=== PATIENT | female | born 1965 | race Caucasian/White ===

== ENCOUNTER 2023-10-18 18:58 | Inpatient (IN) | payer OTHER ==
[2023-10-18] MEDS ORDERED: SODIUM CHLORIDE 0.9% 500 ML 500 ML IV STA (19:30)
--- NOTE | 2023-10-18 19:53 | ED ---
Headache HPI - General Chief Complaint: Headache Stated Complaint: headache Time Seen by Provider: 10/18/23 19:16 Mode of arrival: ambulatory Limitations: no limitations - History of Present Illness Initial Comments: 58-year-old female presenting with chief complaint of headache. Patient has had a headache ongoing for the last 2 days. It feels like a pressure sensation in the center of her head, pain is worse when she wakes from sleeping. She is also complaining of pulsatile tinnitus, this is particularly prominent when laying flat or standing. Patient is a pack per day daily smoker. Denies alcohol use. Previous drug use, on methadone. No vision changes. No chest pain or difficulty breathing, it is noted that upon arrival to the triage [facility] patient's oxygen saturation was in the 80s. She has history of COPD but does not take any of her medications to manage it. She admits to intermittent dizziness. No numbness tingling or weakness. - Related Data Allergies Allergy/AdvReac Type Severity Reaction Status Date / Time haloperidol [From Haldol] AdvReac Unknown Verified 10/18/23 19:11 Review of Systems ROS Statement: Those systems with pertinent positive or pertinent negative responses have been documented in the HPI. ROS Other: All systems not noted in ROS Statement are negative. Past Medical History Additional Past Medical History / Comment(s): endocarditis History of Any Multi-Drug Resistant Organisms: MRSA Date of last positivie culture/infection: 2013 Past Surgical History: Orthopedic Surgery Additional Past Surgical History / Comment(s): left shoulder Past Psychological History: No Psychological Hx Reported Smoking Status: Current some day smoker Past Alcohol Use History: None Reported Past Drug Use History: Marijuana General Exam Limitations: no limitations General appearance: alert, in no apparent distress Head exam: Present: atraumatic, normocephalic Eye exam: Present: normal appearance, PERRL, EOMI Pupils: Present: normal accommodation Neck exam: Present: normal inspection. Absent: meningismus Respiratory exam: Present: rhonchi (Lower lung wagner). Absent: respiratory distress, wheezes, rales, stridor Cardiovascular Exam: Present: regular rate, normal rhythm, normal heart sounds. Absent: systolic murmur, diastolic murmur, rubs, gallop, clicks Extremities exam: Present: normal inspection. Absent: pedal edema Neurological exam: Present: alert, oriented X3 Expanded Patient oriented to: Present: person, place, time Speech: Present: fluid speech Cranial nerves: EOM's Intact: Normal, Facial Sensation: Normal Cerebellar function: Finger to Nose: Normal, Heel to Monae: Normal Motor strength exam: RUE: 5, LUE: 5, RLE: 5, LLE: 5 Eye Response: (4) open spontaneously Motor Response: (6) obeys commands Verbal Response: (5) oriented Amadeo Total: 15 Psychiatric exam: Present: normal affect, normal mood Skin exam: Present: warm, dry Course Vital Signs 10/18/23 10/18/23 10/18/23 19:05 19:14 19:30 Temperature 98 F Pulse Rate 84 70 Respiratory 18 18 Rate Blood Pressure 161/102 169/106 O2 Sat by Pulse 85 L 94 L 97 Oximetry 10/18/23 10/18/23 10/18/23 20:00 21:00 22:00 Temperature Pulse Rate 60 65 Respiratory 16 18 Rate Blood Pressure 165/98 142/82 144/90 O2 Sat by Pulse 95 94 L Oximetry 10/18/23 22:06 Temperature 98.7 F Pulse Rate Respiratory Rate Blood Pressure O2 Sat by Pulse Oximetry Medical Decision Making - Medical Decision Making 58-year-old female with history of COPD presenting with chief complaint of headache. Also admits to pulsatile tinnitus. Patient was found to be hypoxic on room air upon arrival to the triage [facility], oxygen saturation was in the low 80s on room air. She was placed on 3 L via nasal cannula. On physical exam patient does not appear to be moving air well on auscultation of the lower lung wagner. No lower extremity swelling. Negative CT brain and CT angio head and neck. Chest x-ray shows minimal bilateral pleural effusions and COPD. Hemoglobin 16.8 and hematocrit 51.3. Carbon dioxide 32 anion gap 5. Negative troponin. EKG shows sinus rhythm. On reassessment I attempted to take the patient off of oxygen, however she became hypoxic again. She will require admission for uncontrolled COPD and hypoxic respiratory failure. She is agreeable with this plan. I discussed this case with my attending Dr. Thomas Was pt. sent in by a medical professional or institution (, PA, SONG LYRICIST, urgent care, hospital, or snf...) When possible be specific @ -No Did you speak to anyone other than the patient for history (EMS, parent, family, police, friend...)? What history was obtained from this source @ -No Did you review nursing and triage notes (agree or disagree)? Why? @ -I reviewed and agree with nursing and triage notes Were old charts reviewed (outside hosp., previous admission, EMS record, old EKG, old radiological studies, urgent care reports/EKG's, snf records)? Report findings @ -No old charts were reviewed Differential Diagnosis (chest pain, altered mental status, abdominal pain women, abdominal pain men, vaginal bleeding, weakness, fever, dyspnea, syncope, headache, dizziness, GI bleed, back pain, seizure, CVA, palpatations, mental health, musculoskeletal)? @ -MDM Differential Headache: Migraine, tension, cluster, carbon monoxide, central venous thrombosis, pension karma temporal arteritis, acute closure glaucoma, intercranial hemorrhage, mastoiditis, sinusitis, head injury this is not meant to be an all-inclusive list. EKG interpreted by me (3pts min.). @ -As above X-rays interpreted by me (1pt min.). @ -Chest x-ray shows small bilateral pleural effusions and COPD CT interpreted by me (1pt min.). @ -No acute intracranial process seen on CT of brain without contrast. CT angio of the head and neck shows no flow-limiting stenosis bilateral carotid bifurcations. Normal [place]. U/S interpreted by me (1pt. min.). @ -None done What testing was considered but not performed or refused? (CT, X-rays, U/S, labs)? Why? @ -None What meds were considered but not given or refused? Why? @ -None Did you discuss the management of the patient with other professionals (professionals i.e. , PA, SONG LYRICIST, lab, RT, psych nurse, social worker school, miniature train driver, teacher, founder chairman and chief creative officer, wrapper caser)? Give summary @ -No Was smoking cessation discussed for >3mins.? @ -Yes Was critical care preformed (if so, how long)? @ -No Were there social determinants of health that impacted care today? How? (Homelessness, low income, unemployed, alcoholism, drug addiction, transportation, low edu. Level, literacy, decrease access to med. care, retirement, rehab)? @ -No Was there de-escalation of care discussed even if they declined (Discuss DNR or withdrawal of care, Hospice)? DNR status @ -No What co-morbidities impacted this encounter? (DM, HTN, Smoking, COPD, CAD, Cancer, CVA, ARF, Chemo, Hep., AIDS, mental health diagnosis, sleep apnea, morbid obesity)? @ -COPD, smoking Was patient admitted / discharged? Hospital course, mention meds given and route, prescriptions, significant lab abnormalities, going to OR and other pertinent info. @ -Admitted, see above Undiagnosed new problem with uncertain prognosis? @ -No Drug Therapy requiring intensive monitoring for toxicity (Heparin, Nitro, Insulin, Cardizem)? @ -No Were any procedures done? @ -No Diagnosis/symptom? @ -COPD Acute, or Chronic, or Acute on Chronic? @ -Acute on chronic Uncomplicated (without systemic symptoms) or Complicated (systemic symptoms)? @ -Complicated Side effects of treatment? @ -No Exacerbation, Progression, or Severe Exacerbation? @ -No Poses a threat to life or bodily function? How? (Chest pain, [place], GA, pneumonia, PE, COPD, DKA, ARF, appy, cholecystitis, CVA, Diverticulitis, Homicidal, Suicidal, threat to staff... and all critical care pts) @ -Yes Diagnosis/symptom? @Hypoxic respiratory failure Acute, or Chronic, or Acute on Chronic? @Acute Uncomplicated (without systemic symptoms) or Complicated (systemic symptoms)? @Complicated Side effects of treatment? @None Exacerbation, Progression, or Severe Exacerbation] @No Poses a threat to life or bodily function? @Yes - Lab Data Result diagrams: 10/18/23 19:36 10/18/23 19:36 Lab Results 10/18/23 10/18/23 10/18/23 Range/Units 19:36 19:36 19:36 WBC 6.5 (3.8-10.6) k/uL RBC 5.36 (3.80-5.40) m/uL Hgb 16.8 H (11.4-16.0) gm/dL Hct 51.3 H (34.0-46.0) % MCV 95.6 (80.0-100.0) fL MCH 31.3 (25.0-35.0) pg MCHC 32.8 (31.0-37.0) g/dL RDW 13.5 (11.5-15.5) % Plt Count 131 L (150-450) k/uL MPV 8.8 Neutrophils % 75 % Lymphocytes % 19 % Monocytes % 4 % Eosinophils % 1 % Basophils % 1 % Neutrophils # 4.8 (1.3-7.7) k/uL Lymphocytes # 1.2 (1.0-4.8) k/uL Monocytes # 0.2 (0-1.0) k/uL Eosinophils # 0.1 (0-0.7) k/uL Basophils # 0.0 (0-0.2) k/uL PT 11.7 (10.0-12.5) sec INR 1.1 (<1.2) APTT 25.3 (22.0-30.0) sec Sodium 140 (137-145) mmol/L Potassium 4.7 (3.5-5.1) mmol/L Chloride 103 (98-107) mmol/L Carbon Dioxide 32 H (22-30) mmol/L Anion Gap 5 mmol/L BUN 11 (7-17) mg/dL Creatinine 0.56 (0.52-1.04) mg/dL Est GFR (CKD-EPI)AfAm >90 (>60 ml/min/1.73 sqM) Est GFR (CKD-EPI)NonAf >90 (>60 ml/min/1.73 sqM) Glucose 101 H (74-99) mg/dL Calcium 9.3 (8.4-10.2) mg/dL Magnesium 1.8 (1.6-2.3) mg/dL Total Bilirubin 0.6 (0.2-1.3) mg/dL AST 36 (14-36) U/L ALT 12 (4-34) U/L Alkaline Phosphatase 59 (38-126) U/L Troponin I (0.000-0.034) ng/mL Total Protein 7.5 (6.3-8.2) g/dL Albumin 4.2 (3.5-5.0) g/dL 10/18/23 Range/Units 19:36 WBC (3.8-10.6) k/uL RBC (3.80-5.40) m/uL Hgb (11.4-16.0) gm/dL Hct (34.0-46.0) % MCV (80.0-100.0) fL MCH (25.0-35.0) pg MCHC (31.0-37.0) g/dL RDW (11.5-15.5) % Plt Count (150-450) k/uL MPV Neutrophils % % Lymphocytes % % Monocytes % % Eosinophils % % Basophils % % Neutrophils # (1.3-7.7) k/uL Lymphocytes # (1.0-4.8) k/uL Monocytes # (0-1.0) k/uL Eosinophils # (0-0.7) k/uL Basophils # (0-0.2) k/uL PT (10.0-12.5) sec INR (<1.2) APTT (22.0-30.0) sec Sodium (137-145) mmol/L Potassium (3.5-5.1) mmol/L Chloride (98-107) mmol/L Carbon Dioxide (22-30) mmol/L Anion Gap mmol/L BUN (7-17) mg/dL Creatinine (0.52-1.04) mg/dL Est GFR (CKD-EPI)AfAm (>60 ml/min/1.73 sqM) Est GFR (CKD-EPI)NonAf (>60 ml/min/1.73 sqM) Glucose (74-99) mg/dL Calcium (8.4-10.2) mg/dL Magnesium (1.6-2.3) mg/dL Total Bilirubin (0.2-1.3) mg/dL AST (14-36) U/L ALT (4-34) U/L Alkaline Phosphatase (38-126) U/L Troponin I <0.012 (0.000-0.034) ng/mL Total Protein (6.3-8.2) g/dL Albumin (3.5-5.0) g/dL Disposition Clinical Impression: COPD (chronic obstructive pulmonary disease), Hypoxia Disposition: ADMITTED IP TO THIS HOSP Condition: Stable Time of Disposition: 21:52
--- NOTE | 2023-10-18 20:23 | XR ---
EXAMINATION TYPE: XR chest 2V DATE OF EXAM: 10/18/2023 COMPARISON: None INDICATION: Difficulty breathing TECHNIQUE: Frontal and lateral views of the chest are obtained. FINDINGS: The heart size is normal. The pulmonary vasculature is normal. There is blunting of the costophrenic angles. Minimal pleural effusions are present. There is some hy perinflation and flattening the diaphragms compatible with COPD. IMPRESSION: 1. Minimal bilateral pleural effusions. 2. COPD
[2023-10-18 20:34] LABS: Basophils % (A) 1 %; Eosinophils # (A) 0.1 k/uL (0-0.7); Eosinophils % (A) 1 %; HCT 51.3 % (34.0-46.0); HGB 16.8 gm/dL (11.4-16.0); Lymphocytes # (A) 1.2 k/uL (1.0-4.8); Lymphocytes % (A) 19 %; MCH 31.3 pg (25.0-35.0); MCHC 32.8 g/dL (31.0-37.0); MCV 95.6 fL (80.0-100.0); Mean Platelet Volume 8.8; Monocytes # (A) 0.2 k/uL (0-1.0); Monocytes % (A) 4 %; Neutrophils # (A) 4.8 k/uL (1.3-7.7); Neutrophils % (A) 75 %; Platelet Count 131 k/uL (150-450); RBC 5.36 m/uL (3.80-5.40); RDW 13.5 % (11.5-15.5); WBC 6.5 k/uL (3.8-10.6)
[2023-10-18 20:43] LABS: INR 1.1 (<1.2); Partial Thromboplastin Time 25.3 sec (22.0-30.0); Prothrombin Time 11.7 sec (10.0-12.5)
[2023-10-18 20:54] LABS: ALT 12 U/L (4-34); African American GFR (CKD) >90 (>60 ml/min/1.73 sqM); Albumin 4.2 g/dL (3.5-5.0); Anion Gap 5 mmol/L; Blood Urea Nitrogen 11 mg/dL (7-17); Calcium 9.3 mg/dL (8.4-10.2); Carbon Dioxide 32 mmol/L (22-30); Chloride 103 mmol/L (98-107); Glucose 101 mg/dL (74-99); Non-African American GFR(CKD) >90 (>60 ml/min/1.73 sqM); Sodium 140 mmol/L (137-145); Total Bilirubin 0.6 mg/dL (0.2-1.3); Total Protein 7.5 g/dL (6.3-8.2)
[2023-10-18 20:55] LABS: AST 36 U/L (14-36); Alkaline Phosphatase 59 U/L (38-126); Magnesium 1.8 mg/dL (1.6-2.3); Potassium 4.7 mmol/L (3.5-5.1)
--- NOTE | 2023-10-18 21:01 | CT ---
EXAMINATION TYPE: CT brain wo con DATE OF EXAM: 10/18/2023 COMPARISON: 0 INDICATION: Headache, pulsatile tinnitus. DLP: Combined DLP of 1441.1 mGycm, Automated exposure control for dose reduction was used. CONTRAST: None CT of the brain is performed utilizing 3 mm thick sections through the posterior fossa and 3 mm thick sections through the remaining calvarium. Study is performed within 24 hours of arrival to the hosp [facility]. No abnormal hyperdensity is present to suggest an acute intracranial hemorrhage. No mass lesion is evident. No acute infarcts are evident. Ventricles and sulci are appropriate for the patient age. Paranasal sinuses and mastoid air cells within the [id number] are clear. IMPRESSION: 1. No acute intracranial process. Follow-up MRI can be performed as clinically indicated.
--- NOTE | 2023-10-18 21:11 | CT ---
EXAMINATION TYPE: CT angio head neck DATE OF EXAM: 10/18/2023 HISTORY: Headache, pulsatile tinnitus. COMPARISON: None CT DLP: Combined DLP of 1441.1 mGycm. Automated Exposure Control for Dose Reduction was Utilized. TECHNIQUE: CTA scan of the neck is performed with IV Contrast, patient injected with 65ml mL of Isov ue 370, axial images are obtained, coronal and sagittal reformatted images are reviewed. Three-D mary nstructed images are created on an independent workstation and reviewed. Source images are reviewed. FINDINGS: Carotid/Vascular Structures: There is a 3 vessel arch. Common carotid arteries bifurcate into internal and external carotid arteries without significant amairani w limiting stenosis. Vertebral arteries are codominant. Internal carotid arteries and vertebral arteries are patent to the skull base. Emphysematous changes are noted through the lung wagner. Cervical of [place]: Vertebral basilar system appears normal. Posterior cerebral vasculature is unrema rkable. Internal carotid arteries bifurcate normally into A1 and M1 segments. A2 segments are normal. The anterior communicating artery is patent. The right posterior communicating artery is patent. The left posterior communicating artery is patent. IMPRESSION: 1. No flow-limiting stenosis bilateral carotid bifurcations. 2. Normal [place] NASCET criteria was used in interpretation of this exam?
[2023-10-18] MEDS ORDERED: IPRATROPIUM-ALBUTEROL 3 ML NEB INHALATION STA (21:33)
[2023-10-18] MEDS ORDERED: IPRATROPIUM-ALBUTEROL 3 ML NEB INHALATION PRN (21:33)
[2023-10-18] MEDS ORDERED: methylPREDNISolone SOD SUCCI 125 MG/2 ML VIAL IV ONE (21:33)
[2023-10-18] MEDS ORDERED: NALOXONE 0.4 MG/ML 1 ML VIAL IV PRN (21:49)
[2023-10-18] MEDS ORDERED: KETOROLAC 15 MG/ML 1 ML VIAL IVP PRN (21:49)
[2023-10-18] MEDS ORDERED: IBUPROFEN 400 MG TAB PO PRN (21:49)
[2023-10-18] MEDS ORDERED: ACETAMINOPHEN TAB 325 MG TAB PO PRN (21:49)
[2023-10-18] MEDS: NICOTINE 21MG/24HR PATCH TRANSDERM SCH (23:20)
--- NOTE | 2023-10-19 04:45 | P.HPIM ---
History of Present Illness H&P Date: 10/18/23 Chief Complaint: Headache, hypoxemia 58-year-old female with COPD not on home oxygen Patient coming in for evaluation due to headaches for the past 2 days. She describes frontal headaches sometimes wraps around her head when she wakes up from sleep for the past 2 days denies any other focal neurodeficits denies any head injury or falls denies any changes in vision or hearing. Workup done in the ED with imaging of the brain which was unremarkable upon discharging the patient from the ED she became hypoxic upon walking for which she was kept in the hospital. She reported history of COPD however she is not on any inhalers at home she continues to smoke a pack a day. She also has history of IV drug abuse and history of endocarditis currently on methadone that she gets 3 times a week from [place] Patient admits to tobacco smoking 1 pack a day denies any illicit drugs or heavy alcohol She denies any exertional dyspnea however she admits that she is taking things slow and easy. She denies any unintentional weight loss denies any hemoptysis denies any nausea vomiting abdominal pain chest pain or shortness of breath review of systems Pertinent positives as noted in HPI. All other systems were reviewed and are negative on exam Constitutional: No acute distress, conversant, pleasant Eyes: Anicteric sclerae, moist conjunctiva, Pupils equal round reactive to light ENMT: NC/AT Oropharynx clear, no erythema, or exudates Neck: Supple, no masses, or JVD No carotid bruits No thyromegaly Lungs: Good breath sounds bilaterally no wheezing Clear to percussion Normal respiratory effort, no accessory muscle use Cardiovascular: Heart regular in rate and rhythm, No murmurs, gallops, or rubs No peripheral edema Abdominal: Soft Nontender, no guarding, rebound or rigidity Abdomen moving with respiration Normoactive bowel sounds No hepatomegaly, No splenomegaly No palpable mass No abdominal wall hernia noted Extremities: No digital cyanosis No clubbing Pedal pulses intact and symmetrical Radial pulses intact and symmetrical No calf tenderness Psychiatric: Alert and oriented to person, place and time Appropriate affect fair judgement Neuro Muscles Strength 5/5 in all 4 extremities Sensation to light touch grossly present throughout Cranial nerves II-XII grossly intact Lymphatics: no palpable cervical or supraclavicular lymph nodes Past Medical History Past Medical History: COPD, GERD/Reflux Additional Past Medical History / Comment(s): endocarditis, glaucoma History of Any Multi-Drug Resistant Organisms: MRSA Date of last positivie culture/infection: 2006 MDRO Source:: L shoulder Past Surgical History: Orthopedic Surgery Additional Past Surgical History / Comment(s): left shoulder Past Anesthesia/Blood Transfusion Reactions: No Reported Reaction Past Psychological History: No Psychological Hx Reported Smoking Status: Current some day smoker Past Alcohol Use History: None Reported Past Drug Use History: Marijuana Medications and Allergies Home Medications Medication Instructions Recorded Confirmed Type Latanoprost Ophth [Xalatan 0.005%] 1 drop BOTH EYES HS 10/18/23 10/18/23 History Methadone HCl [Methadone Intensol] 1 dose PO DAILY 10/18/23 10/18/23 History Allergies Allergy/AdvReac Type Severity Reaction Status Date / Time haloperidol [From Haldol] AdvReac Unknown Verified 10/18/23 19:11 Physical Exam Vitals: Vital Signs Temp Pulse Pulse Resp BP BP Pulse Ox 10/19/23 02:19 98.4 F 66 18 157/91 92 L 10/18/23 23:01 98.6 F 67 18 174/81 94 L 10/18/23 22:33 68 10/18/23 22:23 64 10/18/23 22:06 98.7 F 10/18/23 22:00 65 18 144/90 94 L 10/18/23 21:00 60 16 142/82 95 10/18/23 20:00 165/98 10/18/23 19:30 70 18 169/106 97 10/18/23 19:14 94 L 10/18/23 19:05 98 F 84 18 161/102 85 L Intake and Output 10/18/23 10/18/23 10/19/23 14:59 22:59 06:59 Other: Weight 48.534 kg Results CBC & Chem 7: 10/18/23 19:36 10/18/23 19:36 Labs: Abnormal Lab Results - Last 24 Hours (Table) 10/18/23 10/18/23 Range/Units 19:36 19:36 Hgb 16.8 H (11.4-16.0) gm/dL Hct 51.3 H (34.0-46.0) % Plt Count 131 L (150-450) k/uL Carbon Dioxide 32 H (22-30) mmol/L Glucose 101 H (74-99) mg/dL Assessment and Plan Assessment: 58-year-old female with COPD not on home oxygen coming in for evaluation of 2 days history of headache however she was found to be hypoxic in the ED I discussed case with ED doctor accepted the admission for acute hypoxic respiratory failure with anticipated length of stay less than 2 midnights Acute hypoxic respiratory failure upon ambulation Patient asymptomatic COPD not on home oxygen, not on any treatment at home Pulmonary consultation DuoNebs scheduled and as needed as needed for shortness of breath Supplemental oxygen as needed Assess for home oxygen requirement with ambulatory oxygen sat Check D-dimer Symbicort twice daily Singulair daily 10 mg Patient counseled strongly to quit smoking Blood work unremarkable otherwise white count 6.5 hemoglobin 16.8 Sodium 140 potassium 4.7 BUN 11 creatinine 0.5 Troponin negative Chest x-ray no acute finding CT of the brain no acute intracranial pathology Verify methadone dose Patient requesting to be discharged early tomorrow if possible as she needs to make it to her methadone clinic to get her dose for over the weekend that she receives methadone 3 times a week with very limited doses. Full code DVT prophylaxis heparin subcu 3 times daily
[2023-10-19] MEDS: NICOTINE 21MG/24HR PATCH TRANSDERM SCH (09:29)
[2023-10-19] MEDS: METHADONE 10 MG TAB PO SCH (09:29)
[2023-10-19] MEDS: METHADONE 5 MG TAB PO SCH (09:30)
[2023-10-19] MEDS: HEPARIN SODIUM,PORCINE 5,000 UNIT/ML 1 ML VIAL SQ SCH ×2 (09:38→16:15)
[2023-10-19] MEDS: methylPREDNISolone SOD SUCCI 40 MG/ML 1 ML VIAL IV SCH ×2 (09:43→22:40)
[2023-10-19] MEDS: SYMBICORT 160-4.5 MCG INHALER INHALATION SCH ×2 (09:52→20:18)
[2023-10-19] MEDS: IPRATROPIUM-ALBUTEROL 3 ML NEB INHALATION SCH ×4 (09:52→20:18)
--- NOTE | 2023-10-19 13:09 | P.PN ---
Subjective Progress Note Date: 10/19/23 Hospital course: Patient is a 58-year-old female with a past medical history of COPD, opioid dependence on methadone, endocarditis, GERD, glaucoma, nicotine dependence, and marijuana use. She presented to the emergency department on 10/18/2023 with a chief complaint of headache. She underwent full evaluation in the emergency department. and was found to be hypoxic with SpO2 of 85% on room air upon arrival to our facility. Other vital signs as follows blood pressure 161/102, heart rate 84, respiratory rate 18, and temp 98.0 F. An EKG was completed showing normal sinus rhythm at 68 bpm with T wave inversion in aVL chest x-ray was completed showing COPD with hyperinflation and flattening of the diaphragm along with minimal bilateral pleural effusions. CT brain also completed negative for acute intracranial process. CTA head and neck showing no flow- limiting stenosis of bilateral carotid bifurcations and negative for acute intercranial process. Labs completed and reviewed. CBC showing elevated hemoglobin of 16.8 and thrombocytopenia with platelet count of 131. Coagulation profile normal findings. BMP showing bicarb elevated at 32. Magnesium normal findings at 1.8. Liver profile unremarkable. Troponin negative at less than 0.012. Patient was treated for her headache and placed on 3 L O2 to maintain SpO2 of 92%. She was admitted under our services for COPD exacerbation with consultation to pulmonology. Physical exam: Vital signs reviewed and stable. General: Nontoxic, no distress and appears stated age. Derm: Skin warm and dry, normal coloration for ethnicity. Head: Atraumatic, normocephalic and symmetric. Eyes: EOMs intact, no lid lag, and anicteric sclera Mouth: no lip lesions, mucus membranes moist Cardiovascular: regular rate and rhythm with normal S1S2, no murmur, positive posterior tibial pulses bilaterally, and cap refill < 2 seconds. Lungs: Respirations even, regular, and unlabored on 2 L O2 via nasal cannula. Lungs diminished otherwise no adventitious lung sounds noted including no rhonchi, no rales, no wheezing, and no accessory muscle usage. Abdominal: soft, nontender to palpation, no guarding, no appreciable organomegaly Ext: ROM intact. No gross muscle atrophy, no edema, no contractures Neuro: Speech clear, face symmetrical and CN II-XII grossly intact with no noted focal neuro deficits Psych: Alert and oriented to person, place, time, and situation. Appropriate and pleasant affect. Assessment and Plan of Care: COPD with acute exacerbation Acute respiratory failure with hypoxia secondary to COPD -Pulmonology following, appreciate further recommendations. -D-dimer was elevated at 2.08. Order was placed for CTA chest. -Oxygenation to be administered and titrated as needed to maintain SPO2 equal to or greater than 92% -Telemetry monitoring. -Monitor pulse-oximetry -Duonebs scheduled 4 times daily and as needed for SOB and/or wheezing -Incentive Spirometry -Steroids: Solu-Medrol 40 mg IVP every 12 hours -Order placed for COVID and influenza A and B PCR's to be completed. -Symptomatic care and pain management with Tylenol 650 mg p.o. every 6 hours and/or Motrin 400 mg every 6 hours as needed for mild pain/discomfort. -Oxygen evaluation to be completed. Headache -CT head and CTA head and neck were negative for acute process. -Symptomatic care and pain management with Tylenol 650 mg p.o. every 6 hours and/or Motrin 400 mg every 6 hours as needed for mild pain/discomfort. Opioid dependence Continue methadone to prevent withdrawal Nicotine dependence Recommend smoking cessation, order placed for nicotine patch 21 mg daily. Data and imaging reviewed: Vital signs reviewed and stable. Blood pressure 150/86, heart rate 67, respiratory rate 17, temp 98.6 F, and SpO2 of 93% on 2 L. D-dimer elevated at 2.08. Order was placed for CTA chest. CODE STATUS: Full code DVT prophylaxis: Heparin Anticipated discharge date: Clinical course to determine Anticipated discharge place: Home Patient was seen independently by Nurse Pracitioner. This document was prepared using [employer] dictation software. Please allow for errors in associate professor of mathematics, while rare they do occur. Cong Adam NP rendered care for this patient independently, reviewed the findings and plan as documented in the note above. I did not physically speak with or examine the patient on this fer Objective - Vital Signs Vital signs: Vital Signs Temp 98.6 F 10/19/23 07:00 Pulse 67 10/19/23 07:00 Resp 18 10/19/23 07:32 BP 150/86 10/19/23 07:00 Pulse Ox 93 L 10/19/23 07:00 FiO2 Intake & Output 10/18/23 10/19/23 10/19/23 18:59 06:59 18:59 Weight 48.534 kg Other: Voiding Method Toilet # Voids 2 - Labs CBC & Chem 7: 10/18/23 19:36 10/18/23 19:36 Labs: Abnormal Lab Results - Last 24 Hours (Table) 10/18/23 10/18/23 Range/Units 19:36 19:36 Hgb 16.8 H (11.4-16.0) gm/dL Hct 51.3 H (34.0-46.0) % Plt Count 131 L (150-450) k/uL Carbon Dioxide 32 H (22-30) mmol/L Glucose 101 H (74-99) mg/dL
--- NOTE | 2023-10-19 13:21 | P.CNPUL ---
History of Present Illness Consult date: 10/19/23 Requesting physician: Patito Ramirez Reason for consult: COPD Chief complaint: Headache and shortness of breath History of present illness: This is a 58-year-old female with history of severe COPD but not O2 dependent, continues to smoke in spite of her COPD, patient presented initially to the hospital with 2 days history of headaches. Patient was worked up for headaches, workup came back nondiagnostic including CT angiogram of the head, patient was about to be discharged home, and she was then complaining of shortness of breath. Was also noted to drop her O2 saturation down to the low 80s. Patient had chronic shortness of breath, she had chronic intermittent episodes of cough and wheezing, considering her low O2 saturation, patient was admitted and this consult was initiated. During my evaluation, the patient sounded relatively clear with diminished breath sound bilaterally consistent with COPD, but no evidence of bronchospasm. Patient was also noted to have elevated D-dimer, and I went ahead and recommended a CT angiogram of the chest. Labs on this admission are basically unremarkable including a relatively normal CBC she does have elevated hemoglobin of 16.8, hence the patient may possibly have chronic hypoxic respiratory failure and secondary polycythemia. Her basic metabolic profile was normal bicarb is 32. Again consistent with possibly chronic hypoxic respiratory failure and hypercapnia screening for influenza A influenza B, RSV and COVID-19 all came back negative chest x-ray showed mostly COPD and very minimal blunting of the costophrenic angles. No evidence of pneumonia and no evidence of congestive heart failure Review of Systems REVIEW OF SYSTEMS: CONSTITUTIONAL: Negative. EYES: Negative. ENT: Negative. CARDIAC: Negative. PULMONARY: As noted in HPI GI: Negative. GENITOURINARY: Negative. MUSCULOSKELETAL: Negative. SKIN: Negative. NEUROPSYCH: Chronic headaches ENDOCRINE: Negative. HEMATOLOGIC: Negative. Past Medical History Past Medical History: COPD, GERD/Reflux Additional Past Medical History / Comment(s): endocarditis, glaucoma History of Any Multi-Drug Resistant Organisms: MRSA Date of last positivie culture/infection: 2006 MDRO Source:: L shoulder Past Surgical History: Orthopedic Surgery Additional Past Surgical History / Comment(s): left shoulder Past Anesthesia/Blood Transfusion Reactions: No Reported Reaction Past Psychological History: No Psychological Hx Reported Smoking Status: Current some day smoker Past Alcohol Use History: None Reported Past Drug Use History: Marijuana Medications and Allergies Home Medications Medication Instructions Recorded Confirmed Type Latanoprost Ophth [Xalatan 0.005%] 1 drop BOTH EYES HS 10/18/23 10/18/23 History Methadone HCl [Methadone Intensol] 93 mg PO DAILY 10/18/23 10/19/23 History Allergies Allergy/AdvReac Type Severity Reaction Status Date / Time haloperidol [From Haldol] AdvReac Unknown Verified 10/18/23 19:11 Physical Exam Vitals: Vital Signs Temp Pulse Pulse Resp BP BP Pulse Ox 10/19/23 13:11 68 10/19/23 12:57 68 10/19/23 10:05 76 10/19/23 09:52 72 10/19/23 07:32 18 10/19/23 07:00 98.6 F 67 17 150/86 93 L 10/19/23 02:19 98.4 F 66 18 157/91 92 L 10/18/23 23:01 98.6 F 67 18 174/81 94 L 10/18/23 22:33 68 10/18/23 22:23 64 10/18/23 22:06 98.7 F 10/18/23 22:00 65 18 144/90 94 L 10/18/23 21:00 60 16 142/82 95 10/18/23 20:00 165/98 10/18/23 19:30 70 18 169/106 97 10/18/23 19:14 94 L 10/18/23 19:05 98 F 84 18 161/102 85 L Intake and Output 10/18/23 10/19/23 10/19/23 22:59 06:59 14:59 Other: Voiding Method Toilet # Voids 2 Weight 48.534 kg General: The patient is awake and alert, in no distress, and does not appear acutely ill. On 2 L nasal cannula Skin: Skin is warm and dry and no rashes or lesions are noted. Eye: Pupils are equal, round and reactive to light, extra-ocular movements are intact; there is normal conjunctiva bilaterally. Ears, nose, mouth and throat: There are moist mucous membranes and no oral lesions. Neck: The neck is supple, there is no tenderness or JVD. Cardiovascular: There is a regular rate and rhythm. No murmur, rub or gallop is appreciated. Respiratory: Diminished breath sound bilaterally no crackles rhonchi or wheezes Gastrointestinal: Soft, non-distended, non-tender abdomen without masses or organomegaly noted. There is no rebound or guarding present. Bowel sounds are unremarkable. Back: There is no tenderness to palpation in the midline. There is no obvious deformity. Musculoskeletal: Normal ROM, no tenderness, There is no pedal edema. There is no calf tenderness or swelling. No cords were appreciated. Neurological: CN II-XII intact, Cranial nerves III through XII are intact. There are no obvious motor or sensory deficits. Coordination appears grossly intact. Speech is normal. Psychiatric: Cooperative, appropriate mood & affect, normal judgment. Results - Laboratory Findings CBC and BMP: 10/18/23 19:36 10/18/23 19:36 PT/INR, D-dimer PT 11.7 sec (10.0-12.5) 10/18/23 19:36 INR 1.1 (<1.2) 10/18/23 19:36 D-Dimer 2.08 mg/L FEU (<0.60) H 10/19/23 08:07 Abnormal lab findings: Abnormal Labs 10/18/23 10/18/23 10/19/23 19:36 19:36 08:07 Hgb 16.8 H Hct 51.3 H Plt Count 131 L D-Dimer 2.08 H Carbon Dioxide 32 H Glucose 101 H - Diagnostic Findings Chest x-ray: image reviewed (As noted in HPI) Assessment and Plan Assessment: Impression: Acute hypoxic respiratory failure, most likely secondary to COPD although the possibility of thromboembolic disease needs to be considered. History of chronic COPD, presently inactive Chronic headaches with negative workup on this admission. Tobacco dependence syndrome Elevated D-dimer History of IV drug abuse, patient is on methadone History of endocarditis Recommendation: Agree with oxygen and titrate accordingly Agree with bronchodilators Her physical findings do not match with her symptoms, hence I am recommending a CT angiogram of the chest specially with her elevated D-dimer. Will continue to follow. Regarding smoking cessation. Time with Patient: Less than 30
[2023-10-19] MEDS ORDERED: MONTELUKAST 10 MG TAB PO SCH (21:00)
--- NOTE | 2023-10-19 22:05 | CT ---
CTA CHEST EXAMINATION TYPE: CT angio chest DATE OF EXAM: 10/19/2023 INDICATION: hypoxia CT DLP: 218.3 mGycm, Automated exposure control for dose reduction was used. CONTRAST: Patient injected with 100 ml mL of Isovue 370. COMPARISON: 10/18/2023 TECHNIQUE: CT of the chest is performed on a spiral scan at 2 mm thick sections. Study is performed with intravenous contrast timed for evaluation for pulmonary embolism. This will limit additional po rtions of the evaluation. 3-D MIP images reconstructed by the technologist are reviewed on the compu ter in the coronal and sagittal planes. FINDINGS: No persistent filling defects are evident to suggest an acute pulmonary embolism. No mediastinal or hilar adenopathy enlarged by CT criteria is evident. The ascending aorta diameter at the level of the main pulmonary artery is 2.9 cm. The main pulmonary artery diameter at the bifurcation is 2.8 cm. Lung windows are clear. Emphysematous changes are evident. Limited CT sections were through the upper abdomen. Upper abdomen appears unremarkable. IMPRESSION: 1. No acute pulmonary embolism. 2. Emphysematous changes
[2023-10-19] MEDS: ZOLPIDEM 5 MG TAB PO PRN (23:15)
[2023-10-20] MEDS: LATANOPROST 0.005% OPHTH DROPS 2.5 ML BTL BOTH EYES SCH ×2 (00:35→21:44)
[2023-10-20] MEDS: HEPARIN SODIUM,PORCINE 5,000 UNIT/ML 1 ML VIAL SQ SCH ×4 (00:43→23:50)
[2023-10-20] MEDS: IPRATROPIUM-ALBUTEROL 3 ML NEB INHALATION SCH ×4 (07:38→18:22)
[2023-10-20] MEDS: SYMBICORT 160-4.5 MCG INHALER INHALATION SCH ×2 (07:38→18:23)
[2023-10-20] MEDS: methylPREDNISolone SOD SUCCI 40 MG/ML 1 ML VIAL IV SCH (08:33)
[2023-10-20] MEDS: NICOTINE 21MG/24HR PATCH TRANSDERM SCH (10:12)
[2023-10-20] MEDS: METHADONE 5 MG TAB PO SCH (10:12)
[2023-10-20] MEDS: METHADONE 10 MG TAB PO SCH (10:13)
--- NOTE | 2023-10-20 12:50 | P.PN ---
Subjective Progress Note Date: 10/20/23 This is a 58-year-old female with history of severe COPD but not O2 dependent, continues to smoke in spite of her COPD, patient presented initially to the hospital with 2 days history of headaches. Patient was worked up for headaches, workup came back nondiagnostic including CT angiogram of the head, patient was about to be discharged home, and she was then complaining of shortness of breath. Was also noted to drop her O2 saturation down to the low 80s. Patient had chronic shortness of breath, she had chronic intermittent episodes of cough and wheezing, considering her low O2 saturation, patient was admitted and this consult was initiated. During my evaluation, the patient sounded relatively c lear with diminished breath sound bilaterally consistent with COPD, but no evidence of bronchospasm. Patient was also noted to have elevated D-dimer, and I went ahead and recommended a CT angiogram of the chest. Labs on this admission are basically unremarkable including a relatively normal CBC she does have elevated hemoglobin of 16.8, hence the patient may possibly have chronic hypoxic respiratory failure and secondary polycythemia. Her basic metabolic profile was normal bicarb is 32. Again consistent with possibly chronic hypoxic respiratory failure and hypercapnia screening for influenza A influenza B, RSV and COVID-19 all came back negative chest x-ray showed mostly COPD and very mi nimal blunting of the costophrenic angles. No evidence of pneumonia and no evidence of congestive heart failure The patient is seen today October 20, 2023 in follow-up on the regular medical floor. She is feeling better today compared to yesterday. CT angiogram ruled out pulmonary embolism. There is noted emphysema. No acute process. She is maintaining O2 saturation in the mid 90s on 2 L/min per nasal cannula. She is afebrile. Hemodynamically stable. No new labs today. She is continued on DuoNeb elations, Symbicort, Solu-Medrol. NicoDerm patch in place. Heparin for DVT prophylaxis. Objective - Vital Signs Vital signs: Vital Signs Temp 98.3 F 10/20/23 07:34 Pulse 80 10/20/23 11:38 Resp 18 10/20/23 07:34 BP 150/81 10/20/23 07:34 Pulse Ox 95 10/20/23 07:38 FiO2 Intake & Output 10/19/23 10/20/23 10/20/23 18:59 06:59 18:59 Other: Voiding Method Toilet Toilet # Voids 3 3 - Exam GENERAL EXAM: Alert, 58-year-old female, on 2 L nasal cannula, comfortable in no apparent distress. HEAD: Normocephalic. EYES: Normal reaction of pupils, equal size. NOSE: Clear with pink turbinates. THROAT: No erythema or exudates. NECK: No masses, no JVD. CHEST: No chest wall deformity. LUNGS: Equal air entry with faint end expiratory wheeze, diminished. CVS: S1 and S2 normal with no audible murmur, regular rhythm. ABDOMEN: No hepatosplenomegaly, normal bowel sounds, no guarding or rigidity. SPINE: No scoliosis or deformity SKIN: No rashes CENTRAL NERVOUS SYSTEM: No focal deficits, tone is normal in all 4 extremities. EXTREMITIES: There is no peripheral edema. No clubbing, no cyanosis. Peripheral pulses are intact. - Labs CBC & Chem 7: 10/18/23 19:36 10/18/23 19:36 Assessment and Plan Assessment: Acute hypoxic respiratory failure, most likely secondary to COPD, CT angiogram ruled out pulmonary embolism. Evidence of emphysema History of chronic COPD Chronic headaches with negative workup on this admission. Tobacco dependence syndrome Elevated D-dimer History of IV drug abuse, patient is on methadone History of endocarditis Plan: The patient was seen and evaluated Medications reviewed Cleared for discharge from the pulmonary standpoint Evaluate for possible home oxygen Continue Symbicort, albuterol Complete a prednisone taper Would recommend outpatient follow-up including pulmonary function testing Educated regarding the importance of complete smoking cessation NicoDerm patch in place I have personally seen and examined the patient, performed the documentation and the assessment and plan as written. Number of minutes spent on the visit: 10.
--- NOTE | 2023-10-20 13:45 | P.PN ---
Subjective Progress Note Date: 10/20/23 Hospital course: Patient is a 58-year-old female with a past medical history of COPD, opioid dependence on methadone, endocarditis, GERD, glaucoma, nicotine dependence, and marijuana use. She presented to the emergency department on 10/18/2023 with a chief complaint of headache. She underwent full evaluation in the emergency department. and was found to be hypoxic with SpO2 of 85% on room air upon arrival to our facility. Other vital signs as follows blood pressure 161/102, heart rate 84, respiratory rate 18, and temp 98.0 F. An EKG was completed showing normal sinus rhythm at 68 bpm with T wave inversion in aVL chest x-ray was completed showing COPD with hyperinflation and flattening of the diaphragm along with minimal bilateral pleural effusions. CT brain also completed negative for acute intracranial process. CTA head and neck showing no flow- limiting stenosis of bilateral carotid bifurcations and negative for acute intercranial process. Labs completed and reviewed. CBC showing elevated hemoglobin of 16.8 and thrombocytopenia with platelet count of 131. Coagulation profile normal findings. BMP showing bicarb elevated at 32. Magnesium normal findings at 1.8. Liver profile unremarkable. Troponin negative at less than 0.012. Patient was treated for her headache and placed on 3 L O2 to maintain SpO2 of 92%. She was admitted under our services for COPD exacerbation with consultation to pulmonology.D-dimer was elevated at 2.08. CTA completed negative for acute pulmonary embolism showing emphysematous changes. Physical exam: Vital signs reviewed and stable. General: Nontoxic, no distress and appears stated age. Derm: Skin warm and dry, normal coloration for ethnicity. Head: Atraumatic, normocephalic and symmetric. Eyes: EOMs intact, no lid lag, and anicteric sclera Mouth: no lip lesions, mucus membranes moist Cardiovascular: regular rate and rhythm with normal S1S2, no murmur, positive posterior tibial pulses bilaterally, and cap refill < 2 seconds. Lungs: Respirations even, regular, and unlabored on 3 L O2 via nasal cannula. Lungs diminished otherwise no adventitious lung sounds noted including no rhonchi, no rales, no wheezing, and no accessory muscle usage. Abdominal: soft, nontender to palpation, no guarding, no appreciable organomegaly Ext: ROM intact. No gross muscle atrophy, no edema, no contractures Neuro: Speech clear, face symmetrical and CN II-XII grossly intact with no noted focal neuro deficits Psych: Alert and oriented to person, place, time, and situation. Appropriate and pleasant affect. Assessment and Plan of Care: COPD with acute exacerbation Acute respiratory failure with hypoxia secondary to COPD D-dimer elevated, CTA negative ruling out PE -Pulmonology following, appreciate further recommendations. -D-dimer was elevated at 2.08. CTA completed negative for acute pulmonary embolism showing emphysematous changes. -Oxygenation to be administered and titrated as needed to maintain SPO2 equal to or greater than 92% -Telemetry monitoring. -Monitor pulse-oximetry -Duonebs scheduled 4 times daily and as needed for SOB and/or wheezing -Incentive Spirometry -Steroids: Solu-Medrol 40 mg IVP every 12 hours -COVID, influenza A and influenza B negative -Symptomatic care and pain management with Tylenol 650 mg p.o. every 6 hours and/or Motrin 400 mg every 6 hours as needed for mild pain/discomfort. -Home oxygen evaluation to be completed. Headache -CT head and CTA head and neck were negative for acute process. -Symptomatic care and pain management with Tylenol 650 mg p.o. every 6 hours and/or Motrin 400 mg every 6 hours as needed for mild pain/discomfort. Opioid dependence Continue methadone to prevent withdrawal Nicotine dependence Recommend smoking cessation, continue nicotine patch 21 mg daily. Data and imaging reviewed: Vital signs reviewed and stable. Blood pressure 150/81, heart rate 79, respiratory rate 18, temp 98.3 F, and SpO2 of 93% on 3 L. CTA chest was completed and results reviewed showing emphysematous changes but negative for pulmonary emboli. CODE STATUS: Full code DVT prophylaxis: Heparin Anticipated discharge date: Likely within the next [address]: Home Patient was seen independently by Nurse Pracitioner. This document was prepared using [employer] dictation software. Please allow for errors in accounting generalist, while rare they do occur. Objective - Vital Signs Vital signs: Vital Signs Temp 98.3 F 10/20/23 07:34 Pulse 80 10/20/23 07:53 Resp 18 10/20/23 07:34 BP 150/81 10/20/23 07:34 Pulse Ox 95 10/20/23 07:38 FiO2 Intake & Output 10/19/23 10/20/23 10/20/23 18:59 06:59 18:59 Other: Voiding Method Toilet Toilet # Voids 3 3 - Labs CBC & Chem 7: 10/18/23 19:36 10/18/23 19:36 Labs: Abnormal Lab Results - Last 24 Hours (Table) 10/19/23 Range/Units 08:07 D-Dimer 2.08 H (<0.60) mg/L FEU
[2023-10-20] MEDS: ZOLPIDEM 5 MG TAB PO PRN (21:46)
[2023-10-21 07:20] VITALS: BP 157/92; RESP 17; TEMP 98.4
[2023-10-21] MEDS: SYMBICORT 160-4.5 MCG INHALER INHALATION SCH (07:44)
[2023-10-21] MEDS: IPRATROPIUM-ALBUTEROL 3 ML NEB INHALATION SCH ×2 (07:44→12:40)
[2023-10-21] MEDS: NICOTINE 21MG/24HR PATCH TRANSDERM SCH (07:58)
[2023-10-21] MEDS: METHADONE 5 MG TAB PO SCH (07:59)
[2023-10-21] MEDS: METHADONE 10 MG TAB PO SCH (08:01)
[2023-10-21] MEDS: HEPARIN SODIUM,PORCINE 5,000 UNIT/ML 1 ML VIAL SQ SCH (08:02)
[2023-10-21 08:39] VITALS: PULSE 80
[2023-10-21] MEDS ORDERED: methylPREDNISolone 4 MG TAB TAPER PO SCH (09:00)
--- NOTE | 2023-10-21 11:30 | P.PN ---
Subjective Progress Note Date: 10/21/23 This is a 58-year-old female with history of severe COPD but not O2 dependent, continues to smoke in spite of her COPD, patient presented initially to the hospital with 2 days history of headaches. Patient was worked up for headaches, workup came back nondiagnostic including CT angiogram of the head, patient was about to be discharged home, and she was then complaining of shortness of breath. Was also noted to drop her O2 saturation down to the low 80s. Patient had chronic shortness of breath, she had chronic intermittent episodes of cough and wheezing, considering her low O2 saturation, patient was admitted and this consult was initiated. During my evaluation, the patient sounded relatively c lear with diminished breath sound bilaterally consistent with COPD, but no evidence of bronchospasm. Patient was also noted to have elevated D-dimer, and I went ahead and recommended a CT angiogram of the chest. Labs on this admission are basically unremarkable including a relatively normal CBC she does have elevated hemoglobin of 16.8, hence the patient may possibly have chronic hypoxic respiratory failure and secondary polycythemia. Her basic metabolic profile was normal bicarb is 32. Again consistent with possibly chronic hypoxic respiratory failure and hypercapnia screening for influenza A influenza B, RSV and COVID-19 all came back negative chest x-ray showed mostly COPD and very mi nimal blunting of the costophrenic angles. No evidence of pneumonia and no evidence of congestive heart failure The patient is seen today October 20, 2023 in follow-up on the regular medical floor. She is feeling better today compared to yesterday. CT angiogram ruled out pulmonary embolism. There is noted emphysema. No acute process. She is maintaining O2 saturation in the mid 90s on 2 L/min per nasal cannula. She is afebrile. Hemodynamically stable. No new labs today. She is continued on DuoNeb elations, Symbicort, Solu-Medrol. NicoDerm patch in place. Heparin for DVT prophylaxis. The patient was seen today October 21, 2023 in follow-up on the regular medical floor. Currently sitting up at the bedside. Awake and alert in no acute distress. No worsening shortness of breath, cough or congestion. She has been continued on DuoNeb elations, Symbicort, steroids. NicoDerm patch in place. She remains afebrile. Hemodynamically stable. Currently on oxygen at 2 L nasal cannula. Will be evaluated for possible home oxygen Objective - Vital Signs Vital signs: Vital Signs Temp 98.4 F 10/21/23 06:40 Pulse 80 10/21/23 08:15 Resp 17 10/21/23 06:40 BP 157/92 10/21/23 06:40 Pulse Ox 95 10/21/23 06:40 FiO2 Intake & Output 10/20/23 10/21/23 10/21/23 18:59 06:59 18:59 Other: # Voids 2 3 - Exam GENERAL EXAM: Alert, 58-year-old female, sitting up at the bedside, on 2 L nasal cannula, in no apparent distress. HEAD: Normocephalic. EYES: Normal reaction of pupils, equal size. NOSE: Clear with pink turbinates. THROAT: No erythema or exudates. NECK: No masses, no JVD. CHEST: No chest wall deformity. LUNGS: Equal air entry with faint end expiratory wheeze, diminished. CVS: S1 and S2 normal with no audible murmur, regular rhythm. ABDOMEN: No hepatosplenomegaly, normal bowel sounds, no guarding or rigidity. SPINE: No scoliosis or deformity SKIN: No rashes CENTRAL NERVOUS SYSTEM: No focal deficits, tone is normal in all 4 extremities. EXTREMITIES: There is no peripheral edema. No clubbing, no cyanosis. Peripheral pulses are intact. - Labs CBC & Chem 7: 10/18/23 19:36 10/18/23 19:36 Assessment and Plan Assessment: Acute hypoxic respiratory failure, most likely secondary to COPD, CT angiogram ruled out pulmonary embolism. Evidence of emphysema History of chronic COPD Chronic headaches with negative workup on this admission. Tobacco dependence syndrome Elevated D-dimer History of IV drug abuse, patient is on methadone History of endocarditis Plan: The patient was seen and evaluated Medications reviewed Evaluate for possible home oxygen Continue Symbicort, albuterol Complete a prednisone taper Recommend outpatient follow-up including pulmonary function testing Educated regarding the importance of complete smoking cessation This patient was seen independently by the pulmonary nurse practitioner addressing pulmonary issues I have personally seen and examined the patient, performed the documentation and the assessment and plan as written. Number of minutes spent on the visit: 22.
--- NOTE | 2023-10-21 14:19 | P.DS ---
Providers Date of admission: 10/18/23 22:10 Expected date of discharge: 10/21/23 Attending physician: Patito Ramirez MD Consults: 10/18/23 21:49 Consult Physician Urgent Consulting Provider: Meredith Stanford Consult Reason/Comments: copd, hypoxia Do you want consulting provider notified?: Yes, Notify in am Primary care physician: Stated None Hospital Course: Discharge Diagnosis: COPD with acute exacerbation. Patient discharged home on Medrol dose taper. She was also prescribed Symbicort 160-4.5 mcg inhaler 2 puffs twice daily as well as albuterol inhaler. Patient instructed to continue albuterol inhaler scheduled 4 times daily for the next week and then may transition to using only as needed for shortness of breath and/or wheezing. Patient was provided with information on PCP to call for appointment this week and instructed to follow-up with cigarette tester in 1 week. Patient was discharged home on continuous home oxygen secondary to feeling Home O2 evaluation with O2 sats decreasing to 87% on room air at rest and 90% on 2 L at rest. Consult was placed to COPD navigator program to follow-up with patient after discharge. Patient strongly encouraged to stop smoking. Acute respiratory failure with hypoxia secondary to COPD D-dimer elevated, CTA negative ruling out PE Headache, resolved Opioid dependence, continue previously prescribed methadone. Nicotine dependence. Recommend smoking cessation, continue nicotine patch 21 mg daily. Hospital Course: Patient is a 58-year-old female with a past medical history of COPD, opioid dependence on methadone, endocarditis, GERD, glaucoma, nicotine dependence, and marijuana use. She presented to the emergency department on 10/18/2023 with a chief complaint of headache. She underwent full evaluation in the emergency department. and was found to be hypoxic with SpO2 of 85% on room air upon arrival to our facility. Other vital signs as follows blood pressure 161/102, heart rate 84, respiratory rate 18, and temp 98.0 F. An EKG was completed showing normal sinus rhythm at 68 bpm with T wave inversion in aVL chest x-ray was completed showing COPD with hyperinflation and flattening of the diaphragm along with minimal bilateral pleural effusions. CT brain also completed negative for acute intracranial process. CTA head and neck showing no flow- limiting stenosis of bilateral carotid bifurcations and negative for acute intercranial process. Labs completed and reviewed. CBC showing elevated hemoglobin of 16.8 and thrombocytopenia with platelet count of 131. Coagulation profile normal findings. BMP showing bicarb elevated at 32. Magnesium normal findings at 1.8. Liver profile unremarkable. Troponin negative at less than 0.012. Patient was treated for her headache and placed on 3 L O2 to maintain SpO2 of 92%. She was admitted under our services for COPD exacerbation with consultation to pulmonology.D-dimer was elevated at 2.08. CTA completed negative for acute pulmonary embolism showing emphysematous changes. Patient received IV steroids and scheduled and as needed breathing treatments throughout hospitalization. She was evaluated for need for home oxygen. Patient desaturating down to 87% on room air at rest and is 90% on 2 L at rest. Arrangements were made for delivery of home oxygen. Instructed she will need to wear home oxygen at all times including while showering and sleeping unless further directed by her cigarette tester upon follow-up visit. Patient discharged with Medrol dose taper, Symbicort 2 puffs twice daily, and Ventolin inhaler in which she was instructed to use 4 times daily scheduled for the next week and then transition to use only as needed for shortness of breath and/or wheezing. Patient to follow-up outpatient with PCP in 1 to 2 days and with cigarette tester in 1 week. Patient strongly encouraged to stop smoking. Physical exam: Vital signs reviewed and stable. General: Nontoxic, no distress and appears stated age. Derm: Skin warm and dry, normal coloration for ethnicity. Head: Atraumatic, normocephalic and symmetric. Eyes: EOMs intact, no lid lag, and anicteric sclera Mouth: no lip lesions, mucus membranes moist Cardiovascular: regular rate and rhythm with normal S1S2, no murmur, positive posterior tibial pulses bilaterally, and cap refill < 2 seconds. Lungs: Respirations even, regular, and unlabored on 3 L O2 via nasal cannula. Lungs diminished otherwise no adventitious lung sounds noted including no rhonchi, no rales, no wheezing, and no accessory muscle usage. Abdominal: soft, nontender to palpation, no guarding, no appreciable organomegaly Ext: ROM intact. No gross muscle atrophy, no edema, no contractures Neuro: Speech clear, face symmetrical and CN II-XII grossly intact with no noted focal neuro deficits Psych: Alert and oriented to person, place, time, and situation. Appropriate and pleasant affect. A total of 36 minutes of time were spent preparing this complex discharge summary. Pt was discharged on 10/21/2023 at 9:40 AM Patient was seen independently by Nurse Practitioner. This document was prepared using [employer] dictation software. Please allow for errors in machinist/machine builder while rare they do occur. Patient Condition at Discharge: Stable Plan - Discharge Summary New Discharge Prescriptions: New Albuterol Inhaler [Ventolin Hfa Inhaler] 2 puff INHALATION QID 30 Days #1 each Nicotine 21Mg/24Hr Patch [Habitrol] 1 patch TRANSDERM DAILY 30 Days #30 patch methylPREDNISolone Dose Pack [Medrol Dose Pack] 4 mg PO DIRECTED #21 tab Budesonide-Formot 160-4.5 Mcg [Symbicort 160-4.5 Mcg Inhaler] 2 puff INHALATION RT-BID 30 Days #1 each Continue Methadone HCl [Methadone Intensol] 93 mg PO DAILY Latanoprost Ophth [Xalatan 0.005%] 1 drop BOTH EYES HS Discharge Medication List Latanoprost Ophth [Xalatan 0.005%] 1 drop BOTH EYES HS 10/18/23 [History] Methadone HCl [Methadone Intensol] 93 mg PO DAILY 10/18/23 [History] Albuterol Inhaler [Ventolin Hfa Inhaler] 2 puff INHALATION QID 30 Days #1 each 10/21/23 [Rx] Budesonide-Formot 160-4.5 Mcg [Symbicort 160-4.5 Mcg Inhaler] 2 puff INHALATION RT-BID 30 Days #1 each 10/21/23 [Rx] Nicotine 21Mg/24Hr Patch [Habitrol] 1 patch TRANSDERM DAILY 30 Days #30 patch 10/21/23 [Rx] methylPREDNISolone Dose Pack [Medrol Dose Pack] 4 mg PO DIRECTED #21 tab 10/21/23 [Rx] Follow up Appointment(s)/Referral(s): Meredith Stanford MD [STAFF PHYSICIAN] - 1 Week Portia Trejo MD [REFERRING] - 1-2 Days (Call for appointment to set up a [facility] care provider, they should be able to get you in this week.) Patient Instructions/Handouts: Albuterol (By breathing), Prednisone (By mouth), Nicotine (Absorbed through the skin), Budesonide/Formoterol (By breathing), How to Stop Smoking (DC), Cigarette Smoking and Your Health (GEN), Using Oxygen at Home (DC), COPD (Chronic Obstructive Pulmonary Disease) (DC), Chronic Lung Disease and Infection Prevention (DC), Pulmonary Rehabilitation (DC) Activity/Diet/Wound Care/Special Instructions: Activity: As tolerated. Take breaks as needed. Diet: Heart healthy and carb consistent diet. Avoid salts, or foods with hidden salts such as canned or boxed foods and frozen dinners. Extra salt makes your heart work harder and traps the fluid in your body for longer. Special Instructions: Take all of your medications as directed and remember to keep all of your doctor's appointments and follow-up as needed. You are being discharged home on continuous home oxygen. It is important to wear this at all times including while showering and sleeping unless further directed by your cigarette tester, Dr. Stanford. Strongly recommend stopping smoking. Thank you for allowing us to participate in your care, it was truly a pleasure having you for our patient!!! Discharge Disposition: HOME SELF-CARE
== END 2023-10-21 13:45 | disposition home or self-care (01) | DRG 190 ==
LOC: EC 18:58 → 1SOBS 22:10 → 5NMEDONC 10-19 18:36
PROVIDERS: ADMIT Internal Medicine; ATTEND Internal Medicine
DX: J44.1 Chronic obstructive pulmonary disease with (acute) exacerbation (principal); J96.01 Acute respiratory failure with hypoxia; F11.20 Opioid dependence, uncomplicated; D69.6 Thrombocytopenia, unspecified; J43.9 Emphysema, unspecified; Z28.310 Unvaccinated for COVID-19; I10 Essential (primary) hypertension; H93.A9 Pulsatile tinnitus, unspecified ear; H40.9 Unspecified glaucoma; K21.9 Gastro-esophageal reflux disease without esophagitis; F17.210 Nicotine dependence, cigarettes, uncomplicated; Z71.6 Tobacco abuse counseling; Z79.899 Other long term (current) drug therapy; Z86.14 Personal history of Methicillin resistant Staphylococcus aureus infection; Z88.8 Allergy status to other drugs, medicaments and biological substances
CPT/HCPCS: 36415; 70450; 70496; 70498; 71046; 71275; 80053; 83735; 84484; 85025; 85379; 85610; 85730; 87636; 93005; 94640; 94760; 96361; 96374; 99285

== ENCOUNTER → 2024-09-11 | Outpatient (CLI) | payer OTHER ==
--- NOTE | 2024-09-12 08:35 | CA ---
Transthoracic Echo Report Name: Adina Shine Age: 59 Gender: F : 1965 Exam Date: 09/11/2024 15:39 Exam Location: [facility] Ht (in): 61 Wt (lb): 128 Ordering Physician: Rickey Lucio MD Attending/Referring Phys: Production Supv Catie Fry RDCS Procedure CPT: Indications: I50.9 HEART FAILURE, UNSPECIFIED Cardiac Hx: Technical Quality: Good Contrast 1: Total Dose (mL): Contrast 2: Total Dose (mL): MEASUREMENTS (Male / Female) Normal Values 2D ECHO LV Diastolic Diameter PLAX 3.4 cm 4.2 - 5.9 / 3.9 - 5.3 cm LV Systolic Diameter PLAX 2.3 cm IVS Diastolic Thickness 0.8 cm 0.6 - 1.0 / 0.6 - 0.9 cm LVPW Diastolic Thickness 0.9 cm 0.6 - 1.0 / 0.6 - 0.9 cm LV Relative Wall Thickness 0.5 RV Internal Dim ED PLAX 5.3 cm LA Systolic Diameter LX 3.1 cm 3.0 - 4.0 / 2.7 - 3.8 cm LV Diastolic Volume MOD 4C 55.4 cm??? LV Systolic Volume MOD 4C 25.5 cm??? LV Ejection Fraction MOD 4C 54.0 % LV Cardiac Index MOD 4C 1354.5 cm???/min???m??? LV Diastolic Length 4C 8.7 cm LV Systolic Length 4C 7.3 cm LV Diastolic Volume MOD 2C 70.9 cm??? LV Systolic Volume MOD 2C 33.4 cm??? LV Ejection Fraction MOD 2C 52.8 % LV Cardiac Index MOD 2C 1695.9 cm???/min???m??? LV Diastolic Length 2C 8.9 cm LV Systolic Length 2C 7.1 cm LA Volume 33.9 cm??? 18 - 58 / 22 - 52 cm??? LA Volume Index 21.3 cm???/m??? 16 - 28 cm???/m??? M-MODE Aortic Root Diameter MM 3.4 cm AV Cusp Separation MM 2.2 cm DOPPLER AV Peak Velocity 111.1 cm/s AV Peak Gradient 4.9 mmHg MV Area PHT 3.6 cm??? Mitral E Point Velocity 86.9 cm/s Mitral A Point Velocity 83.1 cm/s Mitral E to A Ratio 1.0 MV Deceleration Time 211.2 ms TR Peak Velocity 288.9 cm/s TR Peak Gradient 33.4 mmHg Right Ventricular Systolic Press 38.4 mmHg FINDINGS Left Ventricle Left ventricular ejection fraction is estimated at 50-55 %. Small left ventricular cavity. Left ventricular wall thickness normal. No obvious regional wall motion abnormalities. Flattening of ventricular septum in diastole. Right Ventricle Severe right ventricular dilatation. Mild pulmonary hypertension. Right Atrium Moderate right atrial dilatation. No right atrial thrombus or mass seen. Left Atrium Normal left atrial size. No left atrial thrombus or mass present. Mitral Valve Structurally normal mitral valve. No mitral stenosis, regurgitation or prolapse. Aortic Valve Trileaflet aortic valve. No aortic valve stenosis or regurgitation. Tricuspid Valve [id number] tricuspid regurgitation. Structurally normal tricuspid valve. Pulmonic Valve Structurally normal pulmonic valve. No pulmonic regurgitation. Pericardium No pericardial effusion. Aorta Normal size aortic root and proximal ascending aorta. CONCLUSIONS Normal LV systolic function Severe right ventricular dilation dictation Mild pulmonary hypertension Moderate right atrial enlargement Moderate to severe tricuspid regurgitation Flattened interventricular septum in diastole Previewed by: Dr. Luis Arnett MD (Electronically Signed) Final Date: 12 September 2024 08:34
== END | disposition home or self-care (01) ==
LOC: RADECHMAIN 15:24
PROVIDERS: ATTEND Family Medicine
DX: I27.20 Pulmonary hypertension, unspecified (principal); I50.9 Heart failure, unspecified; R06.02 Shortness of breath; R60.0 Localized edema; I51.7 Cardiomegaly
CPT/HCPCS: 93306

== ENCOUNTER → 2024-10-13 | Day surgery (SDC) | payer OTHER | LOC: CATHCVL 08:32 | PROVIDERS: ATTEND Internal Medicine Cardiovascular Disease | DX: Z53.9 Procedure and treatment not carried out, unspecified reason (principal) ==

== ENCOUNTER 2024-10-20 06:25 | Day surgery (SDC) | payer OTHER ==
[~2024-10-20 06:25] MED LIST: MIDAZOLAM 2 MG/2 ML VIAL IV PRN; fentaNYL (PF) 50 MCG/ML 5 ML AMP IVP PRN
[2024-10-20] MEDS: SODIUM CHLORIDE 0.9% 500 ML 500 ML IV ONE ×2 (07:00)
[2024-10-20 07:10] VITALS: TEMP 98.9
[2024-10-20] MEDS: IV FLUID CONTINUATION 1,000 ML IV ONE (07:14)
[2024-10-20] MEDS: BENZOCAINE SPRAY 1 CAN TOPICAL PRN (07:17)
[2024-10-20] MEDS: MIDAZOLAM 2 MG/2 ML VIAL IVP ONE (07:18)
[2024-10-20] MEDS: fentaNYL (PF) 50 MCG/1 ML VIAL IVP ONE (07:18)
[2024-10-20 07:27] VITALS: RESP 16
--- NOTE | 2024-10-20 08:09 | ECHOT ---
TRANSESOPHAGEAL ECHOCARDIOGRAM PROCEDURE: Transesophageal echo. INDICATION: Pulmonary hypertension with enlarged right side. PROCEDURE NOTE: After obtaining informed consent, transesophageal echocardiogram was performed in left lateral position using an Omniplane probe. Local and IV sedation were obtained using Xylocaine spray, 2 mg of Versed, and 25 mcg of fentanyl. The patient tolerated the procedure well without any obvious immediate complications. The patient received moderate conscious sedation. Total sedation time was 10 minutes. There was no evidence of [id number] shunt by color-flow Doppler or [id number] shunt by agitated saline contrast study. FINDINGS: 1. Tricuspid valve shows severe tricuspid regurgitation. Right atrium appears severely enlarged. Right ventricle appears dilated. Left atrium and left ventricle are of normal size. 2. Left ventricle shows normal LV systolic function. There is mild mitral regurgitation. Aortic valve is a 3-leaflet valve. There is no evidence of aortic stenosis or regurgitation. Aortic root appears normal. CONCLUSIONS: 1. Severe tricuspid regurgitation with dilated right atrium and right ventricle. 2. There is no evidence of shunting across the interatrial septum. PLAN: I am going to refer the patient to [facility] for evaluation for tricuspid valve repair clip. MMODL / IJN: [id number] /
[2024-10-20 08:57] VITALS: BP 111/63; PULSE 65
== END 2024-10-20 09:12 | disposition home or self-care (01) ==
LOC: CATHCVL 06:25
PROVIDERS: ATTEND Internal Medicine Cardiovascular Disease
DX: I08.1 Rheumatic disorders of both mitral and tricuspid valves (principal); I27.20 Pulmonary hypertension, unspecified; I11.0 Hypertensive heart disease with heart failure; I50.9 Heart failure, unspecified; J44.9 Chronic obstructive pulmonary disease, unspecified; K21.9 Gastro-esophageal reflux disease without esophagitis; Z79.51 Long term (current) use of inhaled steroids; Z79.899 Other long term (current) drug therapy
CPT/HCPCS: 93312; 93320; 93325; J2250; J3010

== ENCOUNTER → 2025-04-14 | Outpatient (CLI) | payer OTHER ==
[2025-04-15 03:18] LABS: HCT 48.2 % (37.2-46.3); HGB 15.0 g/dL (12.0-15.0); MCH 30.1 pg (27.0-32.0); MCHC 31.1 g/dL (32.0-37.0); MCV 96.8 FL (80.0-97.0); NRBC Per 100 WBC 0 X 10*3/uL (0.00-0.01); Platelet Count 175 X 10*3/uL (140-440); RBC 4.98 X 10*6/uL (4.10-5.20); RDW 14.8 % (11.5-14.5); WBC 6.14 X 10*3/uL (4.50-10.00)
[2025-04-15 03:32] LABS: ALT 6 U/L (8-44); AST 28 U/L (13-35); Albumin 4.4 g/dL (3.8-4.9); Albumin/Globulin Ratio 1.42 Ratio (1.60-3.17); Alkaline Phosphatase 73 U/L (41-126); Anion Gap 11.30 mmol/L (4.00-12.00); BUN/Creat Ratio 14.10 Ratio (12.00-20.00); Blood Urea Nitrogen 14.1 mg/dL (9.0-27.0); Calcium 9.7 mg/dL (8.7-10.3); Carbon Dioxide 27.7 mmol/L (21.6-31.8); Chloride 102 mmol/L (96-109); Globulin 3.1 g/dL (1.6-3.3); Glucose 81 mg/dL (70-110); Magnesium 2.0 mg/dL (1.5-2.4); Potassium 4.5 mmol/L (3.5-5.5); Sodium 141 mmol/L (135-145); Total Protein 7.5 g/dL (6.2-8.2)
[2025-04-15 04:40] LABS: INR 1.07 sec (0.93-1.11); Prothrombin Time 12.1 sec (9.9-11.9)
== END | disposition home or self-care (01) ==
LOC: LABPAT 15:51
PROVIDERS: ATTEND Emergency Medicine
DX: I07.1 Rheumatic tricuspid insufficiency (principal)
CPT/HCPCS: 80053; 83735; 85027; 85610